=== PATIENT | female | born 1945 | race Two or more races ===

== ENCOUNTER 2024-11-13 06:18 | Day surgery (SDC) | payer OTHER ==
[2024-11-10 11:54] VITALS: BP 128/64
[~2024-11-13] VITALS: Ht 157.5 cm; Wt 70.8 kg
[~2024-11-13 06:18] MED LIST: ALENDRONAT70 MG/75 M PO; ASA81 MG PO; GRALISE600 MG; LEVOTHYROXINE50 MC1 PO; MULTI-VITAMIN1 EACH PO
[2024-11-13] MEDS ORDERED: CEFAZOLIN SODIUM 1,000 MG VIAL ONE (11:14)
[2024-11-13] MEDS ORDERED: CHLORHEXIDINE GLUCONATE 120 ML BOTTLE TOP ONE (11:18)
[2024-11-13] MEDS ORDERED: MORPHINE SULFATE 2 MG/ML CARTRIDGE IV ONE (14:55)
== END 2024-11-13 16:00 | disposition home or self-care (01) ==
LOC: CIR.AMB 06:18
PROVIDERS: ATTEND Surgery
DX: D05.12 Intraductal carcinoma in situ of left breast (principal); R59.0 Localized enlarged lymph nodes; F41.9 Anxiety disorder, unspecified; M19.90 Unspecified osteoarthritis, unspecified site; E03.8 Other specified hypothyroidism

== ENCOUNTER 2024-11-26 14:20 | Emergency (ER) | payer OTHER ==
[~2024-11-26] VITALS: Ht 157.5 cm; Wt 74.4 kg
[2024-11-26] MEDS ORDERED: KETOROLAC TROMETHAMINE 60 MG VIAL IM ONE ×2 (17:30→17:39)
[2024-11-26] MEDS ORDERED: ORPHENADRINE CITRATE 30 MG/ML AMPUL IM ONE (17:30)
[2024-11-26] MEDS ORDERED: ORPHENADRINE CITRATE 30 MG/ML AMPUL ONE (17:39)
[2024-11-26] MEDS ORDERED: DICLOFENAC SODI75 MG PO ×2 (20:34→20:36)
[2024-11-26] MEDS ORDERED: BACLOFEN10 MG PO ×2 (20:34→20:36)
== END 2024-11-26 20:47 | disposition home or self-care (01) ==
LOC: ER 14:23
DX: M54.2 Cervicalgia (principal); M54.9 Dorsalgia, unspecified; R51.9 Headache, unspecified; E03.8 Other specified hypothyroidism; S09.8XXA Other specified injuries of head, initial encounter; W19.XXXA Unspecified fall, initial encounter; Y93.89 Activity, other specified; Y92.89 Other specified places as the place of occurrence of the external cause; Y99.8 Other external cause status
CPT/HCPCS: 70450; 96372; 99284; J1885; J2360